=== PATIENT | female | born 1985 | race Caucasian/White ===

== ENCOUNTER 2019-02-17 13:07 | Emergency (ER) | payer SELFPAY ==
[2019-02-17] MEDS: KETOROLAC 30 MG INJ IM (14:40)
== END 2019-02-17 15:39 | disposition home or self-care (01) ==
LOC: FTE 13:07
DX: S90.02XA Contusion of left ankle, initial encounter (principal); W01.198A Fall on same level from slipping, tripping and stumbling with subsequent striking against other object, initial encounter; Y92.009 Unspecified place in unspecified non-institutional (private) residence as the place of occurrence of the external cause
CPT/HCPCS: 73610; 81025; 96372; 99284-25